=== PATIENT | female | born 1935 | race Caucasian/White ===

== ENCOUNTER 2018-03-22 10:59 | Emergency (ER) | END 2018-03-22 23:40 | disposition home or self-care (01) ==

== ENCOUNTER 2018-09-11 03:40 | Emergency (ER) | END 2018-09-13 19:54 ==

== ENCOUNTER 2019-02-13 12:06 | Emergency (ER) | payer OTHER, MEDICAID ==
[~2019-02-13] VITALS: Ht 154.9 cm; Wt 58.5 kg
[~2019-02-13 12:06] MED LIST: ALBU8.5H8 INH; CARB200T43 PO; ENAL5TAB PO; LITH300T5 PO; LORA0.5T PO; OLAN15TA3 PO; SIMV40TA2 PO
[2019-02-13 12:15] VITALS: Ht 154.9 cm; Wt 58.5 kg
[2019-02-13] MEDS ORDERED: ASPIRIN 81 MG TAB PO STA (12:50)
[2019-02-13] MEDS ORDERED: NITROGLYCERIN (SL) 0.4 MG TAB SL PRN (13:00)
[2019-02-13 13:03] VITALS: BP 137/55
[2019-02-13] MEDS: NITROGLYCERIN 2% 1 GM OINT PKT TD STA ×2 (13:08→13:11)
[2019-02-13] MEDS ORDERED: ENAL5TAB PO (13:10)
[2019-02-13] MEDS ORDERED: SIMV40TA2 PO (13:12)
[2019-02-13] MEDS ORDERED: QUET25TA33 PO (13:12)
[2019-02-13] MEDS ORDERED: ASPI-817 PO (13:13)
[2019-02-13] MEDS ORDERED: CARB200T43 PO (13:13)
[2019-02-13] MEDS ORDERED: LITH300T5 PO (13:22)
[2019-02-13 13:45] VITALS: PULSE 79; RESP 21
--- NOTE | 2019-02-13 15:10 | ERD ---
ER Documentation Chief Complaint Chief Complaint EPIGASTRIC PAIN ON AND OFF FOR FEW DAYS, CHEST DISCOMFORT THIS AM, NOT NOW HPI Patient is a 83-year-old female with coronary disease who presents saying "my stomach is bothering me". She said that is been going on for the past 3 days. She said that she had a sharp pain in her chest this morning but that pain is gone now. The pain in the abdomen comes and goes. She said it was worse after she ate breakfast. The pain in the abdomen is generalized. She also complains of throat pain. She has had no treatment as of yet. Upon review of old medical records this is the patient's third visit to the ER since December 2017. She does have a primary doctor. ROS All systems reviewed and are negative except as per history of present illness. Medications Home Meds Reported Medications [place] Carbonate* ([place] Carbonate*) 300 Mg Tablet, 150 MG PO BID, TAB 02/13/19 Aspirin* (Aspirin* EC) 81 Mg Tablet.dr, 81 MG PO DAILY, TAB 02/13/19 Carbamazepine* (Carbamazepine* XR) 200 Mg Tab.er.12h, 200 MG PO Q12, #60 TAB.SA 02/13/19 Simvastatin* (Zocor*) 40 Mg Tablet, 40 MG PO DAILY, #30 TAB 02/13/19 Quetiapine Fumarate* (Quetiapine Fumarate*) 25 Mg Tablet, 12.5 MG PO HS, TAB 02/13/19 Enalapril Maleate* (Enalapril Maleate*) 5 Mg Tablet, 5 MG PO DAILY, TAB 02/13/19 Discontinued Reported Medications Olanzapine* (Zyprexa*) 15 Mg Tablet, 15 MG PO DAILY, #30 TAB 09/11/18 Albuterol Sulfate* (Proair HFA*) 8.5 Gm Hfa.aer.ad, 2 PUFF INH Q4H PRN for WHEEZING AND SOB, #1 INHALER 03/22/18 Simvastatin* (Zocor*) 40 Mg Tablet, 40 MG PO QHS, #30 TAB 03/22/18 Carbamazepine* (Carbamazepine* XR) 200 Mg Tab.er.12h, 200 MG PO Q12, #60 TAB.SA 03/22/18 [place] Carbonate* ([place] Carbonate*) 300 Mg Tablet, 300 MG PO DAILY, TAB 03/22/18 Lorazepam* (Lorazepam*) 0.5 Mg Tablet, 0.5 MG PO BID PRN for ANXIETY, TAB 03/22/18 Enalapril Maleate* (Enalapril Maleate*) 5 Mg Tablet, 5 MG PO DAILY, TAB 03/22/18 Allergies Allergies: Coded Allergies: Penicillins (Verified Allergy, Unknown, 02/13/19) PMhx/Soc History of Surgery: Yes (EYE) Anesthesia Reaction: No Hx Neurological Disorder: Yes (SEIZURE) Hx Respiratory Disorders: No Hx Cardiac Disorders: Yes (HTN,HYPERLIPIDEMIA) Hx Psychiatric Problems: Yes (BIPOLAR DISORDER,ANXIETY) Hx Miscellaneous Medical Probl: Yes ( CKD STAGE 3) Hx Alcohol Use: No Hx Substance Use: No Hx Tobacco Use: No Smoking Status: Never smoker FmHx Family History: No coronary disease Physical Exam Vitals Vital Signs Date Temp Pulse Resp B/P (MAP) Pulse Ox O2 O2 Flow FiO2 Time Delivery Rate 02/13/19 97.9 79 21 100 Room Air 13:45 02/13/19 68 18 137/55 98 Room Air 13:03 (82) 02/13/19 97.9 56 18 110/76 99 12:15 (87) Physical Exam Const: No acute distress Head: Atraumatic Eyes: Normal Conjunctiva ENT: Normal External Ears, Nose and Mouth. Neck: Full range of motion. No meningismus. Resp: Clear to auscultation bilaterally Cardio: Regular rate and rhythm, no murmurs Abd: Soft, diffuse tenderness to palpation without rebound or guarding Skin: No petechiae or rashes Back: No midline or flank tenderness Ext: No cyanosis, or edema Neur: Awake and alert Psych: Patient has flight of ideas at times Result Diagram: 02/13/19 1258 02/13/19 1258 Results 24 hrs Laboratory Tests Test 02/13/19 12:58 White Blood Count 8.1 10^3/ul Red Blood Count 3.37 10^6/ul Hemoglobin 10.6 g/dl Hematocrit 33.8 % Mean Corpuscular Volume 100.3 fl Mean Corpuscular Hemoglobin 31.5 pg Mean Corpuscular Hemoglobin Concent 31.4 g/dl Red Cell Distribution Width 12.0 % Platelet Count 184 10^3/UL Mean Platelet Volume 10.9 fl Immature Granulocytes % 0.100 % Neutrophils % 72.9 % Lymphocytes % 16.7 % Monocytes % 6.8 % Eosinophils % 2.8 % Basophils % 0.7 % Nucleated Red Blood Cells % 0.0 /100WBC Immature Granulocytes # 0.010 10^3/ul Neutrophils # 5.9 10^3/ul Lymphocytes # 1.4 10^3/ul Monocytes # 0.6 10^3/ul Eosinophils # 0.2 10^3/ul Basophils # 0.1 10^3/ul Nucleated Red Blood Cells # 0.0 10^3/ul Sodium Level 141 mmol/L Potassium Level 4.5 mmol/L Chloride Level 106 mmol/L Carbon Dioxide Level 26 mmol/L Anion Gap 9 Blood Urea Nitrogen 22 mg/dl Creatinine 1.43 mg/dl Est Glomerular Filtrat Rate mL/min mL/min Glucose Level 114 mg/dl Calcium Level 10.3 mg/dl Total Bilirubin 0.2 mg/dl Direct Bilirubin 0.00 mg/dl Indirect Bilirubin 0.2 mg/dl Aspartate Amino Transf (AST/SGOT) 43 IU/L Alanine Aminotransferase (ALT/SGPT) 39 IU/L Alkaline Phosphatase 114 IU/L Troponin I < 0.012 ng/ml Total Protein 7.8 g/dl Albumin 4.5 g/dl Globulin 3.30 g/dl Albumin/Globulin Ratio 1.36 Lipase 63 U/L Current Medications Medications Dose Sig/Deniz Start Time Status Last (Trade) Ordered Route PRN Stop Time Admin Dose Reason Admin Aspirin 162 mg ONCE STAT 02/13/19 DC 02/13/19 (Aspirin) PO 12:50 13:08 02/13/19 12:52 1 inch ONCE STAT 02/13/19 DC Nitroglycerin TD 12:50 02/13/19 12:52 (Nitroglyceri n 2% Oint) 1 tab Q5M UP TO 3 02/13/19 Nitroglycerin DOSES PRN 13:00 SL .CHEST (Nitroglyceri PAIN n (Sl Tab) 0.4 Mg) [place] 300 mg ONCE ONCE 02/13/19 DC 02/13/19 Carbonate PO 15:30 15:44 ([place] 02/13/19 15:31 Carbonate) 200 mg ONCE ONCE 02/13/19 DC 02/13/19 Carbamazepine PO 15:30 15:44 (Tegretol) 02/13/19 15:31 Procedures/MDM EKG read by me: Rate/Rhythm: Left bundle branch block at a normal rate Intervals: Normal Impression: Left bundle branch block with concordance in V2 Ultrasound of the gallbladder read by radiology. CT scan of the abdomen pelvis read by radiology. Results of radiology tests and laboratory studies were given to the patient. Patient is an 83-year-old female who presents with abdominal pain and chest pain. I wanted to admit her to the hospital because she had an abnormal EKG as well as a dilated common bile duct but she is adamantly refusing admission at this time. She is going to leave AGAINST MEDICAL ADVICE. I spoke to her about the risks of leaving AGAINST MEDICAL ADVICE and she understands. My concern for her EKG was concordance in V2 in the setting of left bundle branch block. I doubt STEMI at this time however. She also has an elevated dilated common bile duct which could be a cause of her abdominal pain and I would like to have evaluated this as an inpatient as well but the patient is refusing. Departure Diagnosis: Primary Impression: Abnormal EKG Additional Impression: Epigastric pain Condition: Fair Patient Instructions: Epigastric Pain (Uncertain Cause) Referrals: Additional Instructions: Call your primary care doctor TOMORROW for an appointment during the next 1-2 days.See the doctor sooner or return here if your condition worsens before your appointment time. LISETTE CHAPPELL MD Feb 13, 2019 15:10
[2019-02-13] MEDS ORDERED: CARBAMAZEPINE 200 MG TAB PO ONE (15:30)
[2019-02-13] MEDS ORDERED: LITHIUM CARBONATE 300 MG CAP PO ONE (15:30)
== END 2019-02-13 17:15 | disposition left against medical advice (07) ==
LOC: E/R 12:06
DX: R94.31 Abnormal electrocardiogram [ECG] [EKG] (principal); N18.3 Chronic kidney disease, stage 3 (moderate); I12.9 Hypertensive chronic kidney disease with stage 1 through stage 4 chronic kidney disease, or unspecified chronic kidney disease; Z79.82 Long term (current) use of aspirin
CPT/HCPCS: 36415; 71045; 74176; 76705; 80053; 83690; 84484; 85025; 93005